=== PATIENT | female | born 1970 | race Caucasian/White ===

== ENCOUNTER 2021-11-02 08:42 | Emergency (ER) | payer OTHER ==
[~2021-11-02] VITALS: Ht 165.1 cm; Wt 81.6 kg
[~2021-11-02 08:42] MED LIST: [UNRECOGNIZED DRUG - CODE] PO
[2021-11-02 08:51] VITALS: BP_SYST 116
[2021-11-02] MEDS ORDERED: KETOROLAC TROMETHAMINE 60 MG/2 ML VIAL IM ONE (09:00)
[2021-11-02] MEDS ORDERED: MORPHINE 4 MG INJ. 4 MG/ML VIAL IM ONE (10:00)
[2021-11-02] MEDS ORDERED: NAPR-690 PO (10:35)
[2021-11-02 14:17] VITALS: BP_SYST 116
== END 2021-11-02 14:17 | disposition home or self-care (01) ==
LOC: SED 08:42
DX: S20.212A Contusion of left front wall of thorax, initial encounter (principal); W18.39XA Other fall on same level, initial encounter; Y93.89 Activity, other specified; Y92.89 Other specified places as the place of occurrence of the external cause; Y99.8 Other external cause status
CPT/HCPCS: 99284; 71250; 76376; 96372; J1885; J2270